=== PATIENT | female | born 1985 | race Two or more races ===

== ENCOUNTER 2022-09-23 20:45 | Emergency (ER) | payer SELFPAY ==
--- NOTE | ~2022-09-23 | CT_ITS ---
EXAMINATION: CT ABDOMEN AND PELVIS WITH CONTRAST CLINICAL INFORMATION: Abdominal pain, nausea/vomiting/diarrhea COMPARISON: None available. TECHNIQUE: Multidetector volumetric images were obtained from the superior aspect of the liver through the pubic symphysis following administration 85 mL of Omnipaque 350 intravenous contrast. Sagittal and coronal reformatted images were obtained on the technologist's workstation. Oral contrast: No This CT examination was performed using dose optimization techniques as appropriate, variously including the following: *Automated exposure control *Adjustment of mA and/or kV according to patient size (this includes techniques or standardized protocols for targeted exams where dose is matched to indication/reason for exam; i.e. extremities or head) *Use of iterative reconstruction technique DLP: 3 L1 mGy-cm FINDINGS: LUNG BASES: The visualized lung bases are unremarkable. LIVER, GALLBLADDER, AND BILIARY TREE: The liver is normal in size, shape, and attenuation. There is mild intrahepatic intrahepatic biliary ductal prominence which may be physiologic in the setting of prior cholecystectomy PANCREAS: Unremarkable. SPLEEN: Unremarkable. ADRENAL GLANDS: Unremarkable. KIDNEYS AND URETERS: Bilateral nephrograms are symmetric. No hydronephrosis or obstructing calculus identified. BLADDER: Unremarkable. GASTROINTESTINAL TRACT: Assessment for wall thickening in some segments of the colon is limited due to luminal collapse, though no significant pericolonic stranding is seen to strongly suggest a colitis. No evidence of bowel obstruction. Appendix appears nondilated. No free fluid or free air is seen. ABDOMINAL WALL: No significant hernia is appreciated. LYMPH NODES: Normal. VASCULAR: Unremarkable. PELVIC VISCERA: Unremarkable. OSSEOUS STRUCTURES: There is mild disc space narrowing at L4-L5. Grade 1 listhesis noted of L5 on S1. CT/CT abdomen pelvis w IV con IMPRESSION: No acute findings identified in the abdomen/pelvis. Mild intrahepatic biliary ductal prominence may be physiologic in the setting of prior cholecystectomy.
--- NOTE | 2022-09-23 20:47 | ED_ITS ---
HPI - Nausea/Vomiting/Diarrhea General Chief complaint: Nausea/Vomiting/Diarrhea Stated complaint: vomiting/diarrhea Time Seen by Provider: 09/24/22 00:49 Related Data Previous Rx's Medication Instructions Recorded ondansetron 4 mg disintegrating 4 mg PO TID PRN nausea and 09/24/22 tablet vomiting 5 days #10 tabs Allergies Allergy/AdvReac Type Severity Reaction Status Date / Time No Known Allergies Allergy Verified 09/23/22 20:48 PMFSH Social History Social History Advance Directives: No Advance Directives Information Provided: No Physical Exam Vital Signs: Vital Signs: Last Vital Signs Temp 98.4 F 09/24/22 01:12 Pulse 84 09/24/22 01:12 Resp 20 09/24/22 01:12 BP 142/77 H 09/24/22 01:12 Pulse Ox 97 09/24/22 01:12 O2 Del Method Room Air 09/24/22 01:12 BMI result Body Mass Index 20.3 Course Course Course Narrative: RME: 37-year-old female with no significant past medical history presenting to the ED complaining of nausea, vomiting and diarrhea since 1400. Also reports lower abdominal pain/bloating. Denies melena, brbpr or hematemesis, suspicious food intake, fever, chills, dysuria. Recently travel to [place] returned on . Abdomen soft nontender Labs, UA, preg ordered Full HPI, ROS and PE to be performed by primary ED provider. Medications Administered Discontinued Medications Generic Name Dose Route Start Last Admin Trade Name Freq PRN Reason Stop Dose Admin Hydromorphone HCl 0.5 mg 09/24/22 02:10 09/24/22 02:54 Hydromorphone Hcl 0.5 Mg/0.5 Ml Syringe IVPUSH 09/24/22 02:11 0.5 mg ONCE ONE Administration Protocol Sodium Chloride 1,000 mls @ 999 mls/hr 09/24/22 01:45 09/24/22 04:21 Ns IV 09/24/22 02:45 Infused .Q1H1M MARÍA ELENA Infusion Sodium Chloride 1,000 mls @ 999 mls/hr 09/24/22 01:45 09/24/22 04:21 Ns IV 09/24/22 02:45 Infused .Q1H1M MARÍA ELENA Infusion Iohexol 85 ml 09/24/22 03:07 09/24/22 03:07 Iohexol 350 Mg/Ml 100 Ml Infus..Btl IV 09/24/22 03:08 85 ml ONCE ONE Administration Ondansetron HCl 4 mg 09/24/22 04:00 09/24/22 02:59 Ondansetron Hcl 4 Mg/2 Ml Vial IVPUSH 09/24/22 04:01 4 mg ONCE ONE Administration Ondansetron HCl 4 mg 09/24/22 04:31 09/24/22 04:51 Ondansetron Hcl 4 Mg/2 Ml Vial IVPUSH 09/24/22 04:32 4 mg ONCE ONE Administration Medical Decision Making Lab Data 09/23/22 22:02 09/23/22 22:02 Labs: Lab Results 09/23/22 09/23/22 Range/Units 22:02 22:02 WBC 7.1 (4.8-10.8) X10*3/uL RBC 4.10 L (4.20-5.50) X10*6/uL Hgb 11.6 L (12.0-16.0) g/dl Hct 36.3 L (37.0-47.0) % MCV 88.5 (80.0-98.0) fL MCH 28.3 (27.0-33.0) pg MCHC 32.0 (31.0-35.0) g/dl RDW 14.6 (11.0-16.0) % Plt Count 311 (160-400) X10*3/uL MPV 9.2 L (9.4-12.3) fL Immature Gran % (Auto) 0.3 (0.0-0.4) % Neut % (Auto) 77.9 H (45-73) % Lymph % (Auto) 17.6 L (20-40) % [place] % (Auto) 3.5 (2-11) % Eos % (Auto) 0.1 (0-4) % Baso % (Auto) 0.6 (0-2) % Lymph # (Auto) 1.2 (1.2-4.9) X10*3/uL [place] # (Auto) 0.3 (0.1-1.2) X10*3/uL Eos # (Auto) 0.0 (0.0-0.4) X10*3/uL Baso # (Auto) 0.0 (0.0-0.2) X10*3/uL Abs Immat Gran (auto) 0.02 (0.00-0.03) X10*3/uL Absolute Neuts (auto) 5.5 (2.0-8.3) x10*3/uL Absolute Nucleated RBC 0.000 (0.0-0.012) X10*3/uL Nucleated RBC % (auto) 0.0 (0.0-0.2) /100WBC Sodium 139 (135-145) mmol/L Potassium 4.0 (3.3-5.1) mmol/L Chloride 106 (96-108) mmol/L Carbon Dioxide 26 (22-29) mmol/L Anion Gap 11 L (12-20) BUN 7 L (9-16) mg/dL Creatinine 0.77 (0.5-1.4) mg/dL Estim Creat Clear Calc 88.5 Estimated GFR > 60 Random Glucose 99 (60-115) mg/dL Calcium 9.0 (8.4-10.2) mg/dL Magnesium 2.1 (1.6-2.6) mg/dL Total Bilirubin 0.3 (0.0-1.0) mg/dL Direct Bilirubin 0.1 (0.0-0.5) mg/dL AST 18 (5-31) U/L ALT 19 (0-31) U/L Alkaline Phosphatase 69 (39-117) U/L Total Protein 7.2 (6.5-8.0) g/dL Albumin 4.3 (3.5-5.0) g/dL Lipase 17 (8-78) U/L Beta HCG, Quant < 2 mIU/mL Discharge Plan Discharge Clinical Impression: Hyperemesis Patient Disposition: Home, Self-Care Instructions: Acute Nausea and Vomiting (ED), Cannabis Abuse (ED) Prescriptions: New ondansetron 4 mg tablet,disintegrating 4 mg PO TID PRN (Reason: nausea and vomiting) 5 Days Qty: 10 0RF Referrals: Physician,Unknown J [Physician] - 2 days Stand Alone Forms: Work/School Release Interventions: ED Discharge Assessment Last Done: 09/24/22 05:07 Discharge Date/Time: 09/24/22 05:07
[2022-09-23 20:48] VITALS: BP 122/53; PULSE 78; RESP 18; TEMP 36.5; O2SAT 99; BMI 20.3
[2022-09-23 22:10] LABS: Basophils Percent Auto 0.6 % (0-2); Eosinophils Percent Auto 0.1 % (0-4); Hematocrit 36.3 % (37.0-47.0); Hemoglobin 11.6 g/dl (12.0-16.0); Imm Gran Abs Auto 0.02 X10*3/uL (0.00-0.03); Imm Gran Pct Auto 0.3 % (0.0-0.4); Lymphocytes Absolute Auto 1.2 X10*3/uL (1.2-4.9); Lymphocytes Percent Auto 17.6 % (20-40); MANUAL DIFF FLAG NO; Mean Corpuscular Hemoglobin 28.3 pg (27.0-33.0); Mean Corpuscular Volume 88.5 fL (80.0-98.0); Mean Platelet Volume 9.2 fL (9.4-12.3); Monocytes Absolute Auto 0.3 X10*3/uL (0.1-1.2); Monocytes Percent Auto 3.5 % (2-11); Neutrophils Absolute Auto 5.5 x10*3/uL (2.0-8.3); Neutrophils Percent Auto 77.9 % (45-73); Platelet Count 311 X10*3/uL (160-400); Red Cell Distribution Width 14.6 % (11.0-16.0); White Blood Count 7.1 X10*3/uL (4.8-10.8)
[2022-09-23 22:33] LABS: Alanine Aminotransferase 19 U/L (0-31); Albumin Level 4.3 g/dL (3.5-5.0); Alkaline Phosphatase 69 U/L (39-117); Anion Gap 11 (12-20); Aspartate Amino Transferase 18 U/L (5-31); Bilirubin Direct 0.1 mg/dL (0.0-0.5); Bilirubin Total 0.3 mg/dL (0.0-1.0); Blood Urea Nitrogen 7 mg/dL (9-16); Carbon Dioxide 26 mmol/L (22-29); Chloride 106 mmol/L (96-108); Creatinine Clr Calc Pharmacy 88.5; Estimated Glomerular Filt Rate > 60; Glucose Random 99 mg/dL (60-115); Lipase 17 U/L (8-78); Magnesium 2.1 mg/dL (1.6-2.6); Sodium 139 mmol/L (135-145); Total Protein 7.2 g/dL (6.5-8.0)
[2022-09-24 01:12] VITALS: BP 142/77; PULSE 84; RESP 20; TEMP 36.9; O2SAT 97
--- NOTE | 2022-09-24 01:27 | ED_ITS ---
HPI - Nausea/Vomiting/Diarrhea General Chief complaint: Nausea/Vomiting/Diarrhea Stated complaint: vomiting/diarrhea Time Seen by Provider: 09/24/22 00:49 History of Present Illness HPI Narrative: Patient is a 37-year-old female presents today with having nausea vomiting diarrhea since approximately 14:00. Patient has a positive history of marijuana use. Patient claims she is unable to tolerate any fluid at all. Diarrhea is brown in color. There was no blood. Patient is from home. No fever no chills. Positive diffuse abdominal cramping. She is status post tubal ligation status post cholecystectomy. Related Data Previous Rx's Medication Instructions Recorded ondansetron 4 mg disintegrating 4 mg PO TID PRN nausea and 09/24/22 tablet vomiting 5 days #10 tabs Allergies Allergy/AdvReac Type Severity Reaction Status Date / Time No Known Allergies Allergy Verified 09/23/22 20:48 Review of Systems Review of Systems: No fever no chills no chest pain or shortness of breath Yes all other systems are reviewed and are negative Physical Exam Vital Signs: Vital Signs: Last Vital Signs Temp 98.4 F 09/24/22 01:12 Pulse 84 09/24/22 01:12 Resp 20 09/24/22 01:12 BP 142/77 H 09/24/22 01:12 Pulse Ox 97 09/24/22 01:12 O2 Del Method Room Air 09/24/22 01:12 BMI result Body Mass Index 20.3 Appearance: Alert. Oriented X3. No acute distress. Eyes: Pupils equal, round and reactive to light. ENT: Pharynx normal. Neck: Normal inspection. Neck supple. No lymph nodes noted. No crepitus CVS: Normal heart rate and rhythm. Pulses normal. Normal S1 and S2 Respiratory: No respiratory distress. Breath sounds normal. No Wheezing. No rales Abdomen: Diffuse abdominal pain nausea vomiting Skin: Skin warm and dry. Normal skin color. Normal skin turgor. Extremities: No lower extremity edema. Neurovascular intact to all extremities. No Lacerations. No Rash Neuro: Oriented X 3. No motor deficit. No sensory deficit. Moving all extermities. No slurred speech Medications Administered Discontinued Medications Generic Name Dose Route Start Last Admin Trade Name Freq PRN Reason Stop Dose Admin Hydromorphone HCl 0.5 mg 09/24/22 02:10 09/24/22 02:54 Hydromorphone Hcl 0.5 Mg/0.5 Ml Syringe IVPUSH 09/24/22 02:11 0.5 mg ONCE ONE Administration Protocol Sodium Chloride 1,000 mls @ 999 mls/hr 09/24/22 01:45 09/24/22 04:21 Ns IV 09/24/22 02:45 Infused .Q1H1M MARÍA ELENA Infusion Sodium Chloride 1,000 mls @ 999 mls/hr 09/24/22 01:45 09/24/22 04:21 Ns IV 09/24/22 02:45 Infused .Q1H1M MARÍA ELENA Infusion Iohexol 85 ml 09/24/22 03:07 09/24/22 03:07 Iohexol 350 Mg/Ml 100 Ml Infus..Btl IV 09/24/22 03:08 85 ml ONCE ONE Administration Ondansetron HCl 4 mg 09/24/22 04:00 09/24/22 02:59 Ondansetron Hcl 4 Mg/2 Ml Vial IVPUSH 09/24/22 04:01 4 mg ONCE ONE Administration Medical Decision Making Medical Decision Making [facility] Narrative: The patient admits to using marijuana. Then have extreme nausea vomiting since approximately 14:00. CT scan of the abdomen was grossly negative. There is no evidence for appendicitis no evidence for diverticulitis no obstruction no abscess. Given Zofran. Reluctantly given a dose of Dilaudid. Symptoms seems to be improving. Patient to be discharged home. Discussed with patient the need to stop using marijuana. Close follow-up advised. Differential Diagnosis Differential Diagnoses: The differential diagnosis associated with the presentation includes Obstruction, abscess, perforation Admission/Observation Consideration of admission/observation: Escalation of care including admission/observation considered Patient's symptoms seems to have improved Lab Data [facility] Lab Attestation statement: I reviewed the patient's lab results. 09/23/22 22:02 09/23/22 22:02 Labs: Lab Results 09/23/22 09/23/22 Range/Units 22:02 22:02 WBC 7.1 (4.8-10.8) X10*3/uL RBC 4.10 L (4.20-5.50) X10*6/uL Hgb 11.6 L (12.0-16.0) g/dl Hct 36.3 L (37.0-47.0) % MCV 88.5 (80.0-98.0) fL MCH 28.3 (27.0-33.0) pg MCHC 32.0 (31.0-35.0) g/dl RDW 14.6 (11.0-16.0) % Plt Count 311 (160-400) X10*3/uL MPV 9.2 L (9.4-12.3) fL Immature Gran % (Auto) 0.3 (0.0-0.4) % Neut % (Auto) 77.9 H (45-73) % Lymph % (Auto) 17.6 L (20-40) % [place] % (Auto) 3.5 (2-11) % Eos % (Auto) 0.1 (0-4) % Baso % (Auto) 0.6 (0-2) % Lymph # (Auto) 1.2 (1.2-4.9) X10*3/uL [place] # (Auto) 0.3 (0.1-1.2) X10*3/uL Eos # (Auto) 0.0 (0.0-0.4) X10*3/uL Baso # (Auto) 0.0 (0.0-0.2) X10*3/uL Abs Immat Gran (auto) 0.02 (0.00-0.03) X10*3/uL Absolute Neuts (auto) 5.5 (2.0-8.3) x10*3/uL Absolute Nucleated RBC 0.000 (0.0-0.012) X10*3/uL Nucleated RBC % (auto) 0.0 (0.0-0.2) /100WBC Sodium 139 (135-145) mmol/L Potassium 4.0 (3.3-5.1) mmol/L Chloride 106 (96-108) mmol/L Carbon Dioxide 26 (22-29) mmol/L Anion Gap 11 L (12-20) BUN 7 L (9-16) mg/dL Creatinine 0.77 (0.5-1.4) mg/dL Estim Creat Clear Calc 88.5 Estimated GFR > 60 Random Glucose 99 (60-115) mg/dL Calcium 9.0 (8.4-10.2) mg/dL Magnesium 2.1 (1.6-2.6) mg/dL Total Bilirubin 0.3 (0.0-1.0) mg/dL Direct Bilirubin 0.1 (0.0-0.5) mg/dL AST 18 (5-31) U/L ALT 19 (0-31) U/L Alkaline Phosphatase 69 (39-117) U/L Total Protein 7.2 (6.5-8.0) g/dL Albumin 4.3 (3.5-5.0) g/dL Lipase 17 (8-78) U/L Beta HCG, Quant < 2 mIU/mL Independent Interpretation I performed an independent interpretation of an: EKG Interpretation: Sinus rhythm heart rate is 60 LA QRS QT within normal limits there is no acute ST segment elevation noted. Radiology Impression Discussion of test interpretation with radiology: I have reviewed the radiologist's reading. Radiologist Impression: CT scan of the abdomen is grossly negative for any acute evidence of obstruction abscess perforation Independent Historian Clinical information obtained from an independent historian. History obtained from or confirmed by: Friend Prescription Management Nausea medication Discharge Plan Discharge Clinical Impression: Hyperemesis Patient Disposition: Home, Self-Care Instructions: Acute Nausea and Vomiting (ED), Cannabis Abuse (ED) Prescriptions: New ondansetron 4 mg tablet,disintegrating 4 mg PO TID PRN (Reason: nausea and vomiting) 5 Days Qty: 10 0RF Referrals: Physician,Unknown J [Primary Care Provider] - 2 days
--- NOTE | 2022-09-24 01:32 | PC.NURSE ---
at bedside for primary eval. IV established, IVF infusing, pt medicated per MAR.
--- NOTE | 2022-09-24 01:34 | ECG_ITS ---
Test Reason : nausea Blood Pressure : / mmHG Vent. Rate : 059 BPM Atrial Rate : 059 BPM P-R Int : 152 ms QRS Dur : 112 ms QT Int : 450 ms P-R-T Axes : 051 071 060 degrees QTc Int : 445 ms Sinus bradycardia Otherwise normal ECG No previous ECGs available Referred By: Josephine Cole Electronically Signed By:AMAIRANI MALCOLM
[2022-09-24] MEDS: 0.9 % Sodium Chloride 1,000 ML 999 ML IV ×2 (01:58)
[2022-09-24 02:45] LABS: HCG Quantitative < 2 mIU/mL
[2022-09-24] MEDS: HYDROmorphone HCl 0.5 MG/0.5 ML SYRINGE IVPUSH (02:54)
[2022-09-24] MEDS: ondansetron HCL 4 MG/2 ML VIAL IVPUSH ×2 (02:59→04:51)
[2022-09-24] MEDS: iohexoL 350 MG/ML 100 ML INFUS..BTL 85 ML IV (03:07)
== END 2022-09-24 05:07 | disposition home or self-care (01) ==
PROVIDERS: Physician Assistant; Emergency Provider Emergency Medicine Emergency Medical Services
DX: R11.2 Nausea with vomiting, unspecified (principal); R00.0 Tachycardia, unspecified; R19.7 Diarrhea, unspecified; R10.13 Epigastric pain; Z79.899 Other long term (current) drug therapy
CPT/HCPCS: 36415; 74177; 80048; 80076; 83690; 83735; 84702; 85025; 93005; 96361; 96374; 96375; 96376; 99284; J1170; J2405; Q9967

== ENCOUNTER 2024-02-18 19:16 | Emergency (ER) | payer BC, SELFPAY ==
[2024-02-18 19:43] VITALS: BP 169/73; PULSE 62; RESP 20; TEMP 36.8; O2SAT 100; BMI 26.0
--- NOTE | 2024-02-18 19:43 | ED.GENADULT ---
HPI - General Adult General Chief complaint: Nausea/Vomiting/Diarrhea Stated complaint: abd pain, vomiting Time Seen by Provider: 02/18/24 21:30 Source: patient Mode of arrival: ambulatory Limitations: no limitations History of Present Illness ED Provider: mann HITCHCOCK narrative: Patient's history of anxiety comes here with nausea vomiting cough for last 2 3 days was seen at [facility] yesterday and discharged after 24 hours comes here as coughing and vomiting very anxious on arrival saturating 100% at room air patient does have cyclic vomiting/cannabis induced vomiting before Related Data Previous Rx's ?Medication ?Instructions ?Recorded ondansetron 4 mg disintegrating 4 mg PO TID PRN nausea and 09/24/22 tablet vomiting 5 days #10 tabs lorazepam 1 mg tablet (Ativan) 1 mg PO BEDTIME PRN anxiety #7 tabs 02/18/24 ondansetron 4 mg disintegrating 4 mg PO Q6-8H PRN nausea and 02/18/24 tablet vomiting #7 tabs Allergies Allergy/AdvReac Type Severity Reaction Status Date / Time No Known Allergies Allergy Verified 02/18/24 19:45 Review of Systems Review of Systems: Yes all other systems are reviewed and are negative [facility] Social History Social History Advance Directives: No Advance Directives Information Provided: No Physical Exam ED Vital Signs: Vital Signs - 24 hr 02/18/24 19:43 02/18/24 23:31 02/18/24 23:36 Temperature 98.2 F 98.6 F 98.6 F Pulse Rate 62 61 61 Respiratory Rate 20 14 14 Blood Pressure 169/73 H 106/61 106/61 Pulse Oximetry 100 98 98 Oxygen Delivery Method Room Air Room Air Room Air BMI result Body Mass Index 26.0 Appearance: Alert. Oriented X3. Very anxious Eyes: PERRLA, No Nystagmus ENT: Pharynx normal. Oral Mucosa moist Neck: Normal inspection. Neck supple. CVS: Normal heart rate and rhythm. Pulses normal. Respiratory: No respiratory distress. Equal air entry bilateral, no wheezing/rales/rhonchi Abdomen: Soft and nontender. Bowel sounds are present, no mass palpable, no CVA tenderness Skin: Skin warm and dry. Normal skin color. Normal skin turgor. Extremities: No lower extremity edema. No calf tenderness No motor deficit. No sensory deficit.No cerebellar signs , cranial nerves II-XII intact Course Course Course Narrative: RME, this is a rapid medical exam performed by Chad Barrera please refer to primary provider for complete H&P- 38 year old female presents for evaluation of abdominal pain, vomiting, and diarrhea. She reports that she was discharged from [facility] yesterday. Patient states that she was diagnosed with COVID 19 and admitted overnight for a day. Plan for labs. Medications Administered Discontinued Medications Generic Name Dose Route Start Last Admin Trade Name Freq PRN Reason Stop Dose Admin Sodium Chloride 1,000 mls @ 999 mls/hr 02/18/24 21:47 02/18/24 23:27 Ns IV 02/18/24 22:47 Infused .Q1H1M ONE Infusion Lorazepam 1 mg 02/18/24 21:47 02/18/24 22:05 Lorazepam 2 Mg/Ml Vial IVPUSH 02/18/24 21:48 1 mg ONCE ONE Administration Prochlorperazine Edisylate 10 mg 02/18/24 21:47 02/18/24 22:06 Prochlorperazine Edisylate 10 Mg/2 Ml Vial IVPUSH 02/18/24 21:48 10 mg ONCE ONE Administration Medical Decision Making Medical Decision Making [facility] Narrative: Patient's anxiety/cyclic vomiting/COVID with stable vitals responded to lorazepam and Compazine will discharge patient home Lab Data [facility] Lab Attestation statement: I reviewed the patient's lab results. 02/18/24 20:09 02/18/24 20:08 Labs: Lab Results 02/18/24 02/18/24 Range/Units 20:08 20:09 WBC 9.9 (4.8-10.8) X10*3/uL RBC 4.21 (4.20-5.50) X10*6/uL Hgb 12.0 (12.0-16.0) g/dl Hct 37.1 (37.0-47.0) % MCV 88.1 (80.0-98.0) fL MCH 28.5 (27.0-33.0) pg MCHC 32.3 (31.0-35.0) g/dl RDW 14.2 (11.0-16.0) % Plt Count 313 (160-400) X10*3/uL MPV 9.6 (9.4-12.3) fL Immature Gran % (Auto) 0.5 H (0.0-0.4) % Neut % (Auto) 86.1 H (45-73) % Lymph % (Auto) 9.6 L (20-40) % [place] % (Auto) 3.3 (2-11) % Eos % (Auto) 0.2 (0-4) % Baso % (Auto) 0.3 (0-2) % Lymph # (Auto) 1.0 L (1.2-4.9) X10*3/uL [place] # (Auto) 0.3 (0.1-1.2) X10*3/uL Eos # (Auto) 0.0 (0.0-0.4) X10*3/uL Baso # (Auto) 0.0 (0.0-0.2) X10*3/uL Abs Immat Gran (auto) 0.05 H (0.00-0.03) X10*3/uL Absolute Neuts (auto) 8.6 H (2.0-8.3) x10*3/uL Absolute Nucleated RBC 0.000 (0.0-0.012) X10*3/uL Nucleated RBC % (auto) 0.0 (0.0-0.2) /100WBC Sodium 142 (135-145) mmol/L Potassium 3.2 L (3.3-5.1) mmol/L Chloride 111 H (96-108) mmol/L Carbon Dioxide 19 L (22-29) mmol/L Anion Gap 15 (12-20) BUN 6 L (9-16) mg/dL Creatinine 0.82 (0.5-1.4) mg/dL Estim Creat Clear Calc 89.9 Estimated GFR > 60 Random Glucose 126 H (60-115) mg/dL Calcium 9.3 (8.4-10.2) mg/dL Total Bilirubin 0.4 (0.0-1.0) mg/dL AST 19 (5-31) U/L ALT 19 (0-31) U/L Alkaline Phosphatase 74 (39-117) U/L Total Protein 8.2 H (6.5-8.0) g/dL Albumin 4.6 (3.5-5.0) g/dL Lipase 21 (8-78) U/L COVID-19 (SAMMY) Positive A (Negative) COVID-19 Clin Com See Note Discharge Plan Discharge Clinical Impression: Cyclic vomiting syndrome, COVID-19 Patient Disposition: Home, Self-Care Instructions: Cyclic Vomiting Syndrome (ED), COVID-19 (Coronavirus Disease 2019) (ED) Additional Instructions: Stop smoking marijuana Drink plenty of fluids Medicine for nausea and anxiety as prescribed Prescriptions: New lorazepam [Ativan] 1 mg tablet 1 mg PO BEDTIME PRN (Reason: anxiety) Qty: 7 0RF ondansetron 4 mg tablet,disintegrating 4 mg PO Q6-8H PRN (Reason: nausea and vomiting) Qty: 7 0RF No Action ondansetron 4 mg tablet,disintegrating 4 mg PO TID PRN (Reason: nausea and vomiting) 5 Days Qty: 10 0RF Interventions: ED Discharge Assessment Last Done: 02/18/24 23:36 Discharge Date/Time: 02/18/24 23:37 Print Language: Com[place]
[2024-02-18 20:13] LABS: MANUAL DIFF FLAG NO
[2024-02-18 20:15] LABS: Basophils Percent Auto 0.3 % (0-2); Eosinophils Percent Auto 0.2 % (0-4); Hematocrit 37.1 % (37.0-47.0); Imm Gran Abs Auto 0.05 X10*3/uL (0.00-0.03); Imm Gran Pct Auto 0.5 % (0.0-0.4); Lymphocytes Percent Auto 9.6 % (20-40); Mean Corpuscular HGB Conc 32.3 g/dl (31.0-35.0); Mean Corpuscular Hemoglobin 28.5 pg (27.0-33.0); Mean Corpuscular Volume 88.1 fL (80.0-98.0); Mean Platelet Volume 9.6 fL (9.4-12.3); Monocytes Absolute Auto 0.3 X10*3/uL (0.1-1.2); Monocytes Percent Auto 3.3 % (2-11); Neutrophils Absolute Auto 8.6 x10*3/uL (2.0-8.3); Neutrophils Percent Auto 86.1 % (45-73); Platelet Count 313 X10*3/uL (160-400); Red Blood Count 4.21 X10*6/uL (4.20-5.50); Red Cell Distribution Width 14.2 % (11.0-16.0); White Blood Count 9.9 X10*3/uL (4.8-10.8)
[2024-02-18 20:27] LABS: COVID-19 Test Positive (Negative); IDNOW Serial# 152EDE1D
[2024-02-18 20:29] LABS: Alanine Aminotransferase 19 U/L (0-31); Albumin Level 4.6 g/dL (3.5-5.0); Alkaline Phosphatase 74 U/L (39-117); Anion Gap 15 (12-20); Aspartate Amino Transferase 19 U/L (5-31); Bilirubin Total 0.4 mg/dL (0.0-1.0); Blood Urea Nitrogen 6 mg/dL (9-16); Calcium 9.3 mg/dL (8.4-10.2); Carbon Dioxide 19 mmol/L (22-29); Chloride 111 mmol/L (96-108); Creatinine Clr Calc Pharmacy 89.9; Estimated Glomerular Filt Rate > 60; Glucose Random 126 mg/dL (60-115); Lipase 21 U/L (8-78); Potassium 3.2 mmol/L (3.3-5.1); Sodium 142 mmol/L (135-145); Total Protein 8.2 g/dL (6.5-8.0)
[2024-02-18] MEDS: 0.9 % Sodium Chloride 1,000 ML 999 ML IV (22:01)
[2024-02-18] MEDS: LORazepam 2 MG/ML VIAL 1 MG IVPUSH (22:05)
[2024-02-18] MEDS: Prochlorperazine Edisylate 10 MG/2 ML VIAL IVPUSH (22:06)
[2024-02-18 23:31] VITALS: BP 106/61; PULSE 61; RESP 14; TEMP 37; O2SAT 98
[2024-02-18 23:36] VITALS: BP 106/61; PULSE 61; RESP 14; TEMP 37; O2SAT 98
== END 2024-02-18 23:37 | disposition home or self-care (01) ==
PROVIDERS: Physician Assistant; Emergency Provider Internal Medicine; PCP Nurse Practitioner Family
DX: U07.1 COVID-19 (principal); R11.15 Cyclical vomiting syndrome unrelated to migraine
CPT/HCPCS: 36415; 80053; 83690; 85025; 87635; 96361; 96374; 96375; 99284; J0737; J2060